=== PATIENT | female | born 1945 | race Caucasian/White ===

== ENCOUNTER 2018-01-14 11:24 | Emergency (ER) | payer MEDICARE ==
[2018-01-14 11:27] VITALS: BP 138/97; PULSE 86; RESP 16; TEMP 98.2; O2SAT 99
--- NOTE | 2018-01-14 12:16 | RADRPT ---
EXAM DATE/TIME: 01/14/2018 11:48 [facility] COMPARISON: No previous studies available for comparison. INDICATIONS : Fall. Right anterior knee pain with abrasion. MEDICAL HISTORY : None. SURGICAL HISTORY : None. ENCOUNTER: Initial ACUITY: 1 day PAIN SCORE: 6/10 LOCATION: Right anterior knee FINDINGS: Four view examination of the right knee demonstrates no evidence of fracture or dislocation. Bony mi neralization is normal. The articular surfaces are intact. The suprapatellar soft tissues are swoll en possible quadriceps injury. CONCLUSION: Unremarkable examination of the right knee in regards to the bones. Soft tissue fullness in the regio n of the quadriceps insertion hematoma versus quadriceps tear. Niko Reyes MD on January 14, 2018 at 12:13 Board Certified Radiologist. This report was verified electronically.
--- NOTE | 2018-01-14 12:18 | RADRPT ---
EXAM DATE/TIME: 01/14/2018 11:58 [facility] COMPARISON: No previous studies available for comparison. INDICATIONS : Trauma, fall. Hit face on curb. RADIATION DOSE: 43.16 CTDIvol (mGy) MEDICAL HISTORY : Hypertension. SURGICAL HISTORY : None. ENCOUNTER: Initial ACUITY: 1 day PAIN SCALE: 4/10 LOCATION: cranial TECHNIQUE: Multiple contiguous axial images were obtained of the head. Using automated exposure control and adj ustment of the mA and/or kV according to patient size, radiation dose was kept as low as reasonably a chievable to obtain optimal diagnostic quality images. DICOM format image data is available electro nically for review and comparison. FINDINGS: CEREBRUM: The ventricles are normal for age. No evidence of midline shift, mass lesion, hemorrhage or acute in farction. No extra-axial fluid collections are seen. POSTERIOR FOSSA: The cerebellum and brainstem are intact. The 4th ventricle is midline. The cerebellopontine angle i s unremarkable. EXTRACRANIAL: The visualized portion of the orbits is intact. SKULL: The calvaria is intact. No evidence of skull fracture. CONCLUSION: Normal examination. Niko Reyes MD on January 14, 2018 at 12:16 Board Certified Radiologist. This report was verified electronically.
--- NOTE | 2018-01-14 12:20 | RADRPT ---
EXAM DATE/TIME: 01/14/2018 11:58 [facility] COMPARISON: No previous studies available for comparison. INDICATIONS : Trauma, fall. Laceration to left lip. RADIATION DOSE: 58.68 CTDIvol (mGy) MEDICAL HISTORY : Hypertension. SURGICAL HISTORY : None. ENCOUNTER: Initial ACUITY: 1 day PAIN SCORE: 3/10 LOCATION: Left facial TECHNIQUE: Volumetric scanning of the facial bones was performed. Using automated exposure control and adjustme nt of the mA and/or kV according to patient size, radiation dose was kept as low as reasonably achiev able to obtain optimal diagnostic quality images. DICOM format image data is available electronicBringrs y for review and comparison. FINDINGS: ORBITS: The orbital and infraorbital osseous structures are intact. The retroconal structures have a normal configuration. No radiopaque foreign bodies are seen. NASAL BONE: The nasal bone and maxillary spine are intact ZYGOMATIC ARCHES: Symmetric without evidence of fracture. SINUSES: The maxillary, ethmoid and frontal sinuses are intact. No air-fluid levels seen. NASAL CAVITY: The nasal septum is intact and midline. The lacrimal ducts are intact. SOFT TISSUES: No radiopaque foreign bodies seen. No soft-tissue swelling is seen. INTRACRANIAL: No intracranial air seen. CRIBIFORM PLATE: Grossly intact. CONCLUSION: Normal examination. Niko Reyes MD on January 14, 2018 at 12:17 Board Certified Radiologist. This report was verified electronically.
--- NOTE | 2018-01-14 12:32 | PD ---
HPI Chief Complaint: Fall Time Seen by Provider: 11:31 Travel History International Travel<30 days: No Contact w/Intl Traveler<30days: No Traveled to known affect area: No History of Present Illness HPI 72-year-old female presents to the emergency room for evaluation of lip laceration and right knee pain after mechanical fall just prior to arrival. Patient tripped on a curb and fell forward striking her face against the concrete. She denies hitting her head. Denies any loose teeth. Denies loss of consciousness. She reports persistent right knee pain but denies any other musculoskeletal complaints. No neck pain, back pain, or hip pain. Patient has not taken anything for symptoms. Her last tetanus shot was one year ago. [facility] Past Medical History Depression: Yes Hypertension: Yes Tetanus Vaccination: < 5 Years ?: Not Past Surgical History Surgical History: No Previous Surgery Social History Alcohol Use: No Tobacco Use: No Substance Use: No Allergies-Medications (Allergen,Severity, Reaction): Coded Allergies: No Known Allergies (Unverified , 01/14/18) Reported Meds & Prescriptions Reported Meds & Active Scripts Active Augmentin (Amoxicillin-Clavulanate) 875-125 Mg Tab 1 Tab PO BID Review of Systems Except as stated in HPI: all other systems reviewed are Neg Physical Exam Narrative GENERAL: Well-nourished, well-developed female no acute distress. Afebrile. Ambulatory. SKIN: Focused skin assessment warm/dry. There is a 2 cm well approximated laceration over the vermilion border of the left upper lip. Nonbleeding. There is surrounding abrasion. Patient has a very mild puncture wound to the upper inner lip. HEAD: Normocephalic. EYES: No scleral icterus. No injection or drainage. NECK: Supple, trachea midline. No JVD or lymphadenopathy. CARDIOVASCULAR: Regular rate and rhythm without murmurs, gallops, or rubs. RESPIRATORY: Breath sounds equal bilaterally. No accessory muscle use. MUSCULOSKELETAL: No cyanosis. Significant edema of the right distal knee. Extreme tenderness to palpation over the edema. Right lower extremity is neurovascularly intact with 2+ dorsalis pedis pulse. Patient has full range of motion. NEUROLOGICAL: Awake and alert. Cranial nerves II through XII intact. Motor and sensory grossly within normal limits. Five out of 5 muscle strength in all muscle groups. Normal speech. Data Data Last Documented VS Vital Signs Date Time Temp Pulse Resp B/P (MAP) Pulse Ox O2 Delivery O2 Flow Rate FiO2 01/14/18 11:27 98.2 86 16 138/97 (111) 99 Orders Orders Knee, Complete (4vws) (01/14/18 ) Ct Brain W/O Iv Contrast(Rout) (01/14/18 ) Ct Facial Bones W/O Iv Cont (01/14/18 ) Ed Discharge Order (01/14/18 13:26) MDM Medical Decision Making Medical Screen Exam Complete: Yes Emergency Medical Condition: Yes Medical Record Reviewed: Yes Differential Diagnosis Laceration, contusion, abrasion, fracture, strain, sprain, dislocation Narrative Course 72-year-old female presents to the emergency room for evaluation of the left upper lip laceration and right knee pain after mechanical fall just prior to arrival. Patient adamantly denies syncope or loss of consciousness or any other complaints. Physical exam is reassuring. She is interacting appropriately. No focal neurological deficits. There is a deep somewhat on approximated laceration to the left upper lip in line with the vermilion border. She has an associated inner lip puncture wound that does not require repair. Her lip laceration was thoroughly cleansed and repaired, see procedure note for details. Patient was informed she will need to follow-up with a plastic surgeon for suture revision and/or scar improvement because of the location of the scar. CT the head and face are negative. X-ray of the right knee shows hematoma versus tendon rupture; no bony injury. Patient has full range of motion of the right lower extremity is neurovascular intact with 2+ dorsalis pedis pulse. She is ambulatory without significant limp. She has a large hematoma to the distal knee. Moderate tenderness to palpation over the hematoma. While in the emergency room, the swelling significantly decreased. Patient was reassured. She was discharged with orthopedic and wound care instructions and told to follow-up with a primary care physician or return for worsening symptoms. She understands and agrees to plan. Procedures Procedure Narrative LACERATION LOCATION: Left upper lip LENGTH: 2 cm NUMBER OF STITCHES/JALEN: 5 simple interrupted REPAIR: The area of the laceration was prepped with Betadine and sterilely draped. The laceration was infiltrated with 1% lidocaine. The wound was copiously irrigated and explored without evidence of foreign body, tendon injury or neurovascular injury. The wound was closed using 6-0 Prolene. This was a single layer repair. A sterile dressing was applied. The patient was advised to keep the dressing clean and dry. Patient tolerated the procedure well. Diagnosis Primary Impression: Lip laceration Qualified Codes: S01.511A - Laceration without foreign body of lip, initial encounter Additional Impression: Traumatic hematoma of right knee Qualified Codes: S80.01XA - Contusion of right knee, initial encounter Referrals: Kip Katz MD Primary Care Physician Additional Instructions: Rest and drink fluids. Tylenol for pain. Keep wound clean and dry. Apply triple antibiotic ointment daily. Return in 10 days to have sutures removed. Follow-up with a primary care physician. Return to the emergency room for worsening symptoms. Scripts Amoxicillin-Clavulanate (Augmentin) 875-125 Mg Tab 1 TAB PO BID for Infection, #14 TAB 0 Refills Prov: Gustavo Fernandez MD 01/14/18 Disposition: 01 DISCHARGE HOME Condition: Stable Marjorie José Jan 14, 2018 12:32
--- NOTE | 2018-01-14 13:12 | PD ---
Data Data Last Documented VS Vital Signs Date Time Temp Pulse Resp B/P (MAP) Pulse Ox O2 Delivery O2 Flow Rate FiO2 01/14/18 11:27 98.2 86 16 138/97 (111) 99 Orders Orders Knee, Complete (4vws) (01/14/18 ) Ct Brain W/O Iv Contrast(Rout) (01/14/18 ) Ct Facial Bones W/O Iv Cont (01/14/18 ) Ed Discharge Order (01/14/18 13:26) MDM Supervised Visit with JENNIFER: Yes Narrative Course I, Dr. Fernandez, have reviewed the advance practice practitioner's documentation and am in agreement, met with the patient face to face, made the diagnosis, and the medical decision making was done by me. *My assessment and Findings: Patient seen and examined by me in addition to Marjorie José, I was asked to evaluate the patient given x-ray findings of the knee : Last [address] 01/14/18 0000 Signed Impressions: Service Date/Time: Sunday, January 14, 2018 11:58 - CONCLUSION: Normal examination. Niko Reyes MD Knee X-Ray 01/14/18 0000 Signed Impressions: Service Date/Time: Sunday, January 14, 2018 11:48 - CONCLUSION: Unremarkable examination of the right knee in regards to the bones. Soft tissue fullness in the region of the quadriceps insertion hematoma versus quadriceps tear. Niko Reyes MD Head CT 01/14/18 0000 Signed Impressions: Service Date/Time: Sunday, January 14, 2018 11:58 - CONCLUSION: Normal examination. Niko Reyes MD My examination the patient has minimal swelling anteriorly to the knee both above and below the patella, there is no joint effusion that I can appreciate. There is no laxity in the joint anterior posterior drawer nor varus and valgus testing. The patient is able to extend her knee and has absolutely no pain when walking. I have briefly examined her laceration, appears to be well approximated at this point and though it may lead to some scarring was approximated to the best of our ability here. Referrals: Primary Care Physician Additional Instruction: Rest and drink fluids. Tylenol for pain. Keep wound clean and dry. Apply triple antibiotic ointment daily. Return in 10 days to have sutures removed. Follow-up with a primary care physician. Return to the emergency room for worsening symptoms. Scripts Amoxicillin-Clavulanate (Augmentin) 875-125 Mg Tab 1 TAB PO BID for Infection, #14 TAB 0 Refills Prov: Gustavo Fernandez MD 01/14/18 Disposition: 01 DISCHARGE HOME Condition: Stable Gustavo Fernandez MD Jan 14, 2018 13:12
[2018-01-14] MEDS ORDERED: AUGM875T3 PO (13:24)
== END 2018-01-14 13:41 | disposition home or self-care (01) ==
LOC: NEPK 11:24
DX: S80.01XA Contusion of right knee, initial encounter (principal); S01.511A Laceration without foreign body of lip, initial encounter; I10 Essential (primary) hypertension; W01.198A Fall on same level from slipping, tripping and stumbling with subsequent striking against other object, initial encounter; Y93.89 Activity, other specified; Y92.480 Sidewalk as the place of occurrence of the external cause
CPT/HCPCS: 12011; 70450; 70486; 73564